=== PATIENT | male | born 1940 | race Two or more races ===

== ENCOUNTER 2024-07-24 10:49 | Emergency (ER) | payer OTHER ==
[~2024-07-24] VITALS: Ht 172.7 cm; Wt 66.2 kg
[2024-07-24 12:21] LABS: HEMATOCRIT 38.1 % (39.0-48.0); HEMOGLOBIN 12.9 g/dL (13-16.00); MEAN CELL VOLUME 88.9 fL (80.0-100.00); MEAN CORPUSCULAR HGB CONC 33.8 g/dl (32.0-36.0); PLATELET COUNT 211 K/uL (150-450); RED BLOOD COUNT 4.28 M/uL (4.00-6.00); RED CELL DISTRIBUTION WIDTH 14.9 % (11.5-14.5)
[2024-07-24 12:46] LABS: BILIRUBIN TOTAL 0.61 mg/dL (0.3-1.2); CALCIUM 10.2 mg/dL (8.5-10.1); GFR 71.19; GLOBULINA 3.3 G/DL (2.4-3.5); POTASSIUM 4.36 mEq/L (3.5-5.1); TOTAL PROTEIN 7.3 gm/dL (6.4-8.2)
[2024-07-24 13:02] LABS: PH,URINE 5.5 (5.0-8.0); URINE APPEARANCE Clear; URINE BILIRRUBIN Negative (NEGATIVE); URINE BLOOD Negative; URINE COLOR Yellow; URINE GLUCOSE Negative (NEGATIVE); URINE KETONE Trace (NEGATIVE); URINE LEUKOCYTE Negative; URINE NITRATE Negative; URINE PROTEIN Trace (NEGATIVE)
[2024-07-24 13:06] LABS: URINE BACTERIA 6.1 uL (0.0-1933); URINE EPITHELIAL CELLS 4.5 uL (0.0-38.8); URINE RBC 2.5 uL (0.0-20.8); URINE WBC 4.1 uL (0.0-23.2)
[2024-07-24 13:24] LABS: URINE CAST 0.14 uL (0.0-1.40)
== END 2024-07-24 14:20 | disposition home or self-care (01) ==
LOC: ER 10:51
PROVIDERS: General Practice
DX: R07.9 Chest pain, unspecified (principal)